=== PATIENT | female | born 1930 | race Asian ===

== ENCOUNTER → 2017-01-28 | Outpatient (CLI) | payer MEDICARE, OTHER ==
--- NOTE | 2017-01-28 16:49 | RADRPT ---
PROCEDURE: Retroperitoneal ultrasound. CLINICAL INDICATION: Chronic renal insufficiency TECHNIQUE: Echavarria scale and color doppler ultrasound images of the retroperitoneum, kidneys, urinary bladder COMPARISON: No prior studies are available for comparison. FINDINGS: Kidneys: Right length (cm) : 7.9 Left length (cm) : 7.4 Right cortical thickness: Moderate thinning measuring 8 mm Left cortical thickness: Moderate thinning measuring 8 mm. Echogenicity: Increased bilaterally. Hydronephrosis: None. Renal calculi: None. Focal lesions: 6 mm nonshadowing focus within the inferior pole of the right kidney. A few benign-ap pearing cysts are present within the left kidney measuring 2.5 cm. Free fluid/ascites: None. Abdominal aorta: Not visualized by the repeater operator. Bladder: Not visualized due to under distension. Other findings: None. IMPRESSION: Atrophic changes of both kidneys with increased echogenicity without hydronephrosis compatible with chronic medical renal disease. 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 RPTAT: AADD .Magdi Mojica MD, MD Date Time Electronically viewed and signed by .Magdi Mojica MD, on 01/28/2017 16:49 .B/
--- NOTE | 2017-01-28 16:49 | RADRPT ---
PROCEDURE: Retroperitoneal ultrasound. CLINICAL INDICATION: Chronic renal insufficiency TECHNIQUE: Echavarria scale and color doppler ultrasound images of the retroperitoneum, kidneys, urinary bladder COMPARISON: No prior studies are available for comparison. FINDINGS: Kidneys: Right length (cm) : 7.9 Left length (cm) : 7.4 Right cortical thickness: Moderate thinning measuring 8 mm Left cortical thickness: Moderate thinning measuring 8 mm. Echogenicity: Increased bilaterally. Hydronephrosis: None. Renal calculi: None. Focal lesions: 6 mm nonshadowing focus within the inferior pole of the right kidney. A few benign-ap pearing cysts are present within the left kidney measuring 2.5 cm. Free fluid/ascites: None. Abdominal aorta: Not visualized by the drill press tender. Bladder: Not visualized due to under distension. Other findings: None. IMPRESSION: Atrophic changes of both kidneys with increased echogenicity without hydronephrosis compatible with chronic medical renal disease. 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 RPTAT: AADD .Magdi Mojica MD, MD Date Time Electronically viewed and signed by .Magdi Mojica MD, on 01/28/2017 16:49 .B/
--- NOTE | 2017-01-28 16:49 | RADRPT ---
PROCEDURE: Retroperitoneal ultrasound. CLINICAL INDICATION: Chronic renal insufficiency TECHNIQUE: Echavarria scale and color doppler ultrasound images of the retroperitoneum, kidneys, urinary bladder COMPARISON: No prior studies are available for comparison. FINDINGS: Kidneys: Right length (cm) : 7.9 Left length (cm) : 7.4 Right cortical thickness: Moderate thinning measuring 8 mm Left cortical thickness: Moderate thinning measuring 8 mm. Echogenicity: Increased bilaterally. Hydronephrosis: None. Renal calculi: None. Focal lesions: 6 mm nonshadowing focus within the inferior pole of the right kidney. A few benign-ap pearing cysts are present within the left kidney measuring 2.5 cm. Free fluid/ascites: None. Abdominal aorta: Not visualized by the drop forger. Bladder: Not visualized due to under distension. Other findings: None. IMPRESSION: Atrophic changes of both kidneys with increased echogenicity without hydronephrosis compatible with chronic medical renal disease. 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 RPTAT: AADD .Magdi Mojica MD, MD Date Time Electronically viewed and signed by .Magdi Mojica MD, on 01/28/2017 16:49 .B/
[2017-01-30 18:32] LABS: PTH CALCIUM 9.4 mg/dL (8.6-10.4)
== END | disposition home or self-care (01) ==
LOC: U/S 15:43
PROVIDERS: ATTEND Internal Medicine Nephrology
DX: N18.9 Chronic kidney disease, unspecified (principal)
CPT/HCPCS: 76775; 80053; 81001; 82043; 83036; 83970; 84100; 84560; 85025